=== PATIENT | male | born 1950 | race Caucasian/White ===

== ENCOUNTER 2018-10-14 13:20 | Emergency (ER) | payer MEDICARE, MEDICAID ==
[~2018-10-14] VITALS: Ht 175.3 cm; Wt 72.6 kg
--- NOTE | 2018-10-14 13:20 | NUR ---
Pt placed in bed 1 by MICHAELS
[2018-10-14 13:25] VITALS: BP_SYST 114
[2018-10-14] MEDS ORDERED: ACETAMINOPHEN 325 MG TABLET PO ONE (13:30)
--- NOTE | 2018-10-14 13:31 | NUR ---
Note kasey in ED - 10/14/18 at 1332 by LAM Patient to ER bed 14 to [facility] for evaluation. Side rails up. Report given to Maryann BEJARANO.
--- NOTE | 2018-10-14 14:00 | NUR ---
Patient with a history of epilepsy that currently resides at [facility] presents to the ED brought in by BLS with c/c self-reported seizure at approximately 9:30 AM. Patient is alert and oriented he reports that he is compliant with his medications. Reports during the episodes he remained inspected to stay safe. He denies any head injuries, nausea, vomiting no changes in vision. Reports having a mild to moderate headache and he reports that he's been having a cough, sore throat and subjective fevers for approximately 4 days. Denies any abdominal pain, dysuria no changes in bowel or bladder habits no other chief complaints or associated symptoms
--- NOTE | 2018-10-14 14:01 | NUR ---
Hardy FITCH at bedside for examination and evaluation.
[2018-10-14 14:29] LABS: BASOPHILS % (AUTO) 0.9 % (0.0-2.0); EOSINOPHILS % (AUTO) 3.6 % (0.0-4.0); HEMATOCRIT 37.9 % (36-54); HEMOGLOBIN 12.3 g/dL (14.0-18.0); LYMPHOCYTES # (AUTO) 1.2 K/uL (1.0-5.5); LYMPHOCYTES % (AUTO) 16.4 % (20.5-51.5); MEAN CORPUSCULAR HEMOGLOBIN 29 pg (27-31); MEAN CORPUSCULAR HGB CONC 32 % (32-36); MEAN CORPUSCULAR VOLUME 89 fL (79.0-98.0); MONOCYTES # (AUTO) 0.9 K/uL (0.0-1.0); MONOCYTES % (AUTO) 12.2 % (1.7-9.3); NEUTROPHILS # (AUTO) 4.8 K/uL (1.8-7.7); NEUTROPHILS % (AUTO) 66.9 % (40.0-70.0); PLATELET COUNT (AUTO) 167 K/uL (130-430); RED BLOOD CELL COUNT(AUTO) 4.28 MIL/uL (4.2-6.2); RED CELL DISTRIBUTION WIDTH 21.4 % (9.0-15.0); WHITE BLOOD COUNT (AUTO) 7.3 K/uL (4.8-10.8)
[2018-10-14 14:30] LABS: BASOPHILS # (AUTO) 0.1 K/uL (0.0-0.2); EOSINOPHILS # (AUTO) 0.3 K/uL (0.0-0.4)
[2018-10-14 14:39] LABS: POTASSIUM 4.7 mmol/L (3.5-5.1)
[2018-10-14 14:40] LABS: CALCIUM 9.1 mg/dL (8.4-11.0); CREATININE 0.94 mg/dL (0.55-1.30); TOTAL BILIRUBIN 0.3 mg/dL (0.0-1.0)
[2018-10-14 14:41] LABS: ALBUMIN 3.5 g/dL (3.4-4.8)
[2018-10-14] MEDS ORDERED: ACETAMINOPHEN 500 MG TABLET ONE (14:53)
--- NOTE | 2018-10-14 15:17 | NUR ---
LITTLE Dash given results for urine dipstick. Lisa Head to arrange transportation to return to facility.
--- NOTE | 2018-10-14 16:00 | NUR ---
Patient given written and verbal discharge instructions and verbalizes understanding. ER MD discussed with patient the results and treatment provided. Patient in stable condition. ID arm band removed. Rx of Promethazine and Tylenol given. Patient educated on pain management and to follow up with PMD. Pain Scale 0/10. Opportunity for questions provided and answered. Medication side effect fact sheet provided. Transport set up by [facility]. Patient transferred back with [facility].
[2018-10-14 16:20] LABS: BARBITURATE, URINE NEGATIVE (NEG <=200); BENZODIAZEPINE, URINE NEGATIVE (NEG <=150); CANNABINOID, URINE NEGATIVE (NEG <=50); COCAINE, URINE NEGATIVE (NEG <=150); METHAMPHETAMINES SCREEN,URINE NEGATIVE (NEG <=500); OPIATE, URINE NEGATIVE (NEG <=100); PHENCYCLIDINE SCREEN,URINE NEGATIVE (NEG <=25); UR TRICYCLIC ANTIDEPRESSANTS NEGATIVE (NEG <=300); URINE AMPHETAMINE NEGATIVE (NEG <=500); URINE METHADONE NEGATIVE (NEG <=200); URINE OXYCODONE SCREEN NEGATIVE (NEG <=100); URINE PROPOXYPHENE SCREEN NEGATIVE (NEG <=300)
[2018-10-14 16:24] VITALS: BP_SYST 108
== END 2018-10-14 16:00 ==
LOC: SED 13:20
DX: J06.9 Acute upper respiratory infection, unspecified (principal); J45.909 Unspecified asthma, uncomplicated; Z88.7 Allergy status to serum and vaccine
CPT/HCPCS: 36415; 71045; 80053; 80164-TC; 80307; 82542; 85025; 99284